=== PATIENT | male | born 1950 | race Caucasian/White ===

== ENCOUNTER 2016-06-17 22:27 | Inpatient (IN) | payer BC, MEDICAID ==
[~2016-06-17] VITALS: Ht 167.6 cm; Wt 65.9 kg
[2016-06-17] MEDS ORDERED: HEPARIN 1000 UNITS/ML 10 ML INJ IV STA (22:32)
[2016-06-17] MEDS ORDERED: ASPIRIN 81 MG TAB PO STA (22:32)
[2016-06-17] MEDS ORDERED: HEPARIN 25000 UNITS/250 ML 250 ML IV STA (22:32)
[2016-06-17 23:05] LABS: BASOPHIL # 0.1 10^3/ul (0.0-0.1); BASOPHILS % 0.6 % (0.0-2.0); EOSINOPHILS % 0.2 % (0.0-7.0); HEMATOCRIT 37.5 % (42.0-52.0); HEMOGLOBIN 12.3 g/dl (14.0-18.0); MEAN CORPUSCULAR HEMOGLOBIN 26.3 pg (29.0-33.0); MEAN CORPUSCULAR HGB CONC 32.7 g/dl (32.0-37.0); MEAN CORPUSCULAR VOLUME 80.3 fl (82.0-101.0); MEAN PLATELET VOLUME 7.6 fl (7.4-10.4); MONOCYTE # 0.7 10^3/ul (0.3-0.9); MONOCYTES % 7.4 % (0.0-11.0); NEUTROPHIL # 7.6 10^3/ul (1.6-7.5); NEUTROPHILS % 80.8 % (39.0-77.0); PLATELET COUNT 353 10^3/UL (140-440); RED BLOOD COUNT 4.66 10^6/ul (4.70-6.10); RED CELL DISTRIBUTION WIDTH 17.1 % (11.5-14.5); UNCORRECTED WBC 9.4 10^3/ul (4.8-10.8); WHITE BLOOD COUNT 9.4 10^3/ul (4.8-10.8)
--- NOTE | 2016-06-17 23:05 | RADRPT ---
PROCEDURE: XR Chest. CLINICAL INDICATION: Chest pain. TECHNIQUE: Single frontal view of the chest was obtained COMPARISON: None FINDINGS: Cardiomegaly. Lungs otherwise substantially clear. Likely degree of central lobular emphysema. There is no pleural effusion or pneumothorax. IMPRESSION: Cardiomegaly, and otherwise no evident acute cardiopulmonary disease. RPTAT: [facility]U Physician David Date Time Electronically viewed and signed by Don Nelson Physician on 06/17/2016 23:05 RS/
[2016-06-17 23:06] LABS: CONDITION 1; LH ANALYZER COMMENTS 1
[2016-06-17 23:10] LABS: INR 1.31; PROTIME 16.4 Sec (12.2-14.2); PT RATIO 1.3
[2016-06-17 23:20] LABS: POTASSIUM 3.8 mmol/L (3.5-5.1)
[2016-06-17 23:22] LABS: CREATININE 1.39 mg/dl (0.61-1.24)
[2016-06-17 23:23] LABS: CALCIUM 8.3 mg/dl (8.4-10.2)
[2016-06-17 23:38] LABS: TROPONIN-I 5.18 ng/ml (0.00-0.12)
[2016-06-18] VITALS (47 sets, daily range): BP systolic 87–156; BP diastolic 48–108; PULSE 70–106; RESP 13–28; TEMP 98; Ht 167.6 cm; Wt 65.9 kg
--- NOTE | 2016-06-18 00:29 | ERA ---
ER Documentation Chief Complaint Date/Time DATE: 06/18/16 TIME: 00:23 Chief Complaint transferred from 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 Patient has a left bundle-branch block with a troponin of 6.9. He did not have any chest pain. He states that he was eating dinner approximate hour before presentation in the hospital when he said he was unable to eat any more and vomited. He did not have any significant abdominal pain is not have abdominal pain or chest pain now. It is unknown if he had a left bundle branch block in the past. Currently states that he feels a little bit shaky but otherwise is asymptomatic. ROS All systems reviewed and are negative except as per history of present illness. Allergies Allergies: Coded Allergies: No Known Drug Allergies (Verified Allergy, Unknown, 06/17/16) PMhx/Soc Medical and Surgical Hx: pt denies Medical Hx, pt denies Surgical Hx Hx Alcohol Use: No Hx Substance Use: No Hx Tobacco Use: No Smoking Status: Never smoker Physical Exam Vitals Vital Signs Date Time Temp Pulse Resp B/P Pulse Ox O2 Delivery O2 Flow Rate FiO2 06/17/16 23:53 82 16 116/74 99 Nasal Cannula 2.0 06/17/16 22:40 Nasal Cannula 2 06/17/16 22:40 98.0 102 16 128/80 100 Physical Exam Const: [] No distress Head: Atraumatic Eyes: Normal Conjunctiva ENT: Normal External Ears, Nose and Mouth. Neck: Full range of motion..~ No meningismus. Resp: Clear to auscultation bilaterally Cardio: Regular mild tachycardia, no murmurs Abd: Soft, non tender, non distended. Normal bowel sounds Skin: No petechiae or rashes Back: No midline or flank tenderness Ext: No cyanosis, or edema Neur: Awake and alert and oriented 3, no focal deficits Psych: Normal Mood and Affect Result Diagram: 06/17/16224406/17/162244 Results 24 hrs Laboratory Tests Test 06/17/16 22:45 Activated Partial Thromboplast Time 31.0Sec Anion Gap 18 Basophils # 0.110^3/ul Basophils % 0.6% Blood Morphology Comment Blood Urea Nitrogen 21mg/dl Calcium Level 8.3mg/dl Carbon Dioxide Level 22mmol/L Chloride Level 106mmol/L Creatinine 1.39mg/dl Eosinophils # 0.010^3/ul Eosinophils % 0.2% Glucose Level 159mg/dl Hematocrit 37.5% Hemoglobin 12.3g/dl INR International Normalized Ratio 1.31 Lymphocytes # 1.010^3/ul Lymphocytes % 11.0% Mean Corpuscular Hemoglobin 26.3pg Mean Corpuscular Hemoglobin Concent 32.7g/dl Mean Corpuscular Volume 80.3fl Mean Platelet Volume 7.6fl Monocytes # 0.710^3/ul Monocytes % 7.4% Neutrophils # 7.610^3/ul Neutrophils % 80.8% Nucleated Red Blood Cells # 0.010^3/ul Nucleated Red Blood Cells % 0.0/100WBC Platelet Count 29448^3/UL Potassium Level 3.8mmol/L Prothrombin Time 16.4Sec Prothrombin Time Ratio 1.3 Red Blood Count 4.6610^6/ul Red Cell Distribution Width 17.1% Sodium Level 142mmol/L Troponin I 5.180ng/ml White Blood Count 9.410^3/ul Current Medications Medications (Trade) Dose Ordered Sig/Bonita Route PRN Reason Start Time Stop Time Status Last Admin Dose Admin Aspirin (Aspirin) 162 mg ONCE STAT PO 06/17/16 22:32 06/17/16 22:37 DC 06/17/16 23:00 Heparin Sodium (Porcine) 4000 unit 4,000 unit ONCE STAT IV 06/17/16 22:32 06/17/16 22:37 DC 06/17/16 23:06 Heparin Sodium (Porcine) (Heparin 02156 Units/250 ml) 250 ml @ 0 mls/hr ONCE STAT IV 06/17/16 22:32 06/17/16 22:37 DC 06/17/16 23:21 Ondansetron HCl (Zofran Inj) 4 mg ER BRIDGE PRN IV NAUSEA AND/OR VOMITING 06/18/16 00:30 06/19/16 00:29 Acetaminophen (Tylenol Tab) 650 mg ER BRIDGE PRN PO MILD PAIN/FEVER 06/18/16 00:30 06/19/16 00:29 Procedures/MDM Acute myocardial infarction 66-year-old male. Spoke with sole leveler, Faviola, so that a left bundle does not constitute a STEMI and she worked the patient up further other than activate the Fur Floor Worker. Patient's troponin was 5.1 here which is decreased from prior. EKG still showing left bundle branch block. Patient remained asymptomatic in the emergency room and had no return of nausea. He had no chest pain. Tender mainly given by 160 pill grams of aspirin because per senior courtroom clerk report it only received a total of 162, 81 [facility] and 81 in the ambulance. I started a heparin bolus of 4000 units as well as a heparin drip. Patient need to be admitted to telemetry for cardiology evaluation of his troponins trended. He will go for further testing echocardiogram etc. Spoke with Dr. Poole will be admitting. EKG interpretation: Sinus tachycardia rate of 104, Left bundle-branch block, normal axis court monitor interpretation: Initial sinus tachycardia followed by normal sinus rhythm with no other arrhythmias Chest x-ray interpretation: No acute process, cardiomegaly, no infiltrate, no pulmonary edema, no bony abnormalities Departure Diagnosis: Primary Impression: Non-STEMI (non-ST elevated myocardial infarction) Additional Impressions: Bundle branch block, left Vomiting Renal insufficiency Condition: Serious IRIS LOYA DO Jun 18, 2016 00:29
[2016-06-18] MEDS ORDERED: ONDANSETRON 4 MG INJ IV PRN ×3 (00:30→11:30)
[2016-06-18] MEDS ORDERED: ACETAMINOPHEN 325 MG TAB PO PRN ×3 (00:30→11:30)
[2016-06-18 06:16] LABS: INR 1.23; PROTIME 15.6 Sec (12.2-14.2); PT RATIO 1.2
[2016-06-18 06:17] LABS: PARTIAL THROMBOPLASTIN TIME 41.1 Sec (25.0-35.0)
[2016-06-18 06:24] LABS: CK-MB 2.17 ng/ml (0.0-2.4); TROPONIN-I 3.85 ng/ml (0.00-0.12)
[2016-06-18] MEDS ORDERED: HEPARIN 25000 UNITS/D5W 250 ML IV SCH (06:30)
[2016-06-18] MEDS ORDERED: HEPARIN 1000 UNITS/ML 10 ML INJ IV PRN ×2 (06:30→08:00)
[2016-06-18] MEDS ORDERED: HYDROCODONE/APAP (5/325) TAB PO PRN (08:00)
[2016-06-18] MEDS ORDERED: NACL 0.9% 3 ML SYG IV SCH (08:00)
[2016-06-18] MEDS ORDERED: 1/2 NS + KCL 20 MEQ 1,000 ML IV SCH (08:00)
[2016-06-18] MEDS ORDERED: HEPARIN 25000 UNITS/250 ML 250 ML IV SCH (08:00)
[2016-06-18] MEDS ORDERED: DOCUSATE SODIUM 100 MG CAP PO PRN (08:00)
[2016-06-18] MEDS ORDERED: NITROGLYCERIN (SL) 0.4 MG TAB SL PRN (08:00)
[2016-06-18] MEDS ORDERED: ZOLPIDEM 5 MG TAB PO PRN (08:00)
[2016-06-18] MEDS ORDERED: morphine 2 MG INJ IV PRN ×2 (08:00→11:30)
[2016-06-18] MEDS ORDERED: ATEN-51 PO (08:16)
--- NOTE | 2016-06-18 08:38 | HP ---
DATE OF ADMISSION: 06/17/2016 TIME: 7 a.m. CHIEF COMPLAINT: Nausea, vomiting. HISTORY OF PRESENT ILLNESS: The patient is a 66-year-old male with a history of hypertension and it looks like rheumatoid arthritis. The patient presents with nausea, vomiting after having some soup yesterday. The patient was initially at an outside hospital. He did have a left bundle branch blo ck and the troponins were elevated. There is question of whether a code STEMI should be called. I had spoken to interventionalist ornamental bronze worker, Dr. Salmeron. He did not feel that it warranted a code STEM I. The patient's troponins were noted to be elevated in the ED. The patient had no chest pain curr ently or even prior, no shortness of breath. Vitals have been stable. The patient at this time den ies any nausea, vomiting. He denies any cardiac history. PAST MEDICAL HISTORY: Hypertension and rheumatoid arthritis. PAST SURGICAL HISTORY: Denies. HOME MEDICATIONS: Unknown at this time. The patient takes blood pressure medications and medicines for his arthritis. ALLERGIES: NO KNOWN DRUG ALLERGIES. FAMILY HISTORY: Denies any cardiac history. SOCIAL HISTORY: Denies any alcohol, tobacco, or drug abuse. REVIEW OF SYSTEMS: A 12-point review of systems negative except that listed in the HPI. PHYSICAL EXAMINATION: VITAL SIGNS: Temperature is 98.0, pulse 80, respiratory rate 17, BP is 121/85, saturation 100% on 2 L. GENERAL: No acute distress, alert and oriented. HEENT: Normocephalic, atraumatic. LUNGS: Clear to auscultation. CARDIOVASCULAR: Regular rate and rhythm. ABDOMEN: Nondistended, nontender, soft. EXTREMITIES: No clubbing, cyanosis, or edema. LABORATORIES: White count 7.4, hemoglobin is 12.3, platelets are 353. Chemistry within normal limi ts except for BUN of 21, creatinine 1.39. Troponin is 5.180 and 3.850. INR is 1.23. DIAGNOSTICS: Chest x-ray shows cardiomegaly, otherwise no acute disease. EKG shows sinus tachycard ia, left bundle branch block, normal axis, no signs of ischemia. ASSESSMENT AND PLAN: 1. Pjd-UM-ymedrvelw myocardial infarction. The patient is not felt to require emergent catheteriza tion per interventionalist ornamental bronze worker, Dr. Salmeron. The patient has no chest pain. Vitals are stable. No shortness of breath. Troponins are trending down. We will continue heparin drip. Will get a cardiology consultation. We will get a 2-D echo. Will also give nitroglycerin and morphine p.r.n. for any chest pain, but once again, the patient is not having any pain at this time. Etiology may h ave been secondary to severe nausea, vomiting, but it is not clear at this time. 2. Intractable nausea and vomiting. This has since resolved. He states that this occurred after h aving some soup yesterday, but once again, this is resolved. 3. Normocytic anemia. This is mild. We will check an iron panel. 4. Acute versus chronic kidney disease. The patient's baseline renal function is unknown, will con radio equipment repairer a nephrology consultation. 5. History of arthritis, likely rheumatoid, pain control. The patient should be advised to see a r heumatologist as an outpatient to initiate biologics. 6. Prophylaxis. The patient will benefit from a heparin drip. Dictated By: BEATRIZ KESSLER MD BS/NTS Conf#: [id number] DID#: [id number]
--- NOTE | 2016-06-18 09:03 | CONS ---
Date/Time of Note Date/Time of Note DATE: 06/18/16 TIME: 08:56 Assessment/Plan Assessment/Plan Chief Complaint/Hosp Course NSTEMI: Unclear when and what the symptoms were as the pt only had nausea/ vomiting and no typical symptoms. EKG shows LBBB but unclear what his baseline EKG is. The EKG does however also show inferior ST depressions and mild RONALDO I and aVL. He remains completely asymptomatic. The troponins have gone from 7-->5- ->4. Unknown EF JENINFER vs CKD: Cr 1.3 HTN RA -though unclear circumstances, the patient had an NSTEMI and needs coronary evaluation -ASA given, on heparin drip -will arrange for cath this am or early afternoon depending on pathology laboratory technologist availability Problems: Consultation Date/Type/Reason Admit Date/Time Jun 18, 2016 at 08:52 Date of Consultation: Jun 18, 2016 Type of Consultation: Cardiology Reason for Consultation NSTEMI Referring Provider: BEATRIZ KESSLER of Present Illness 66 yo M with a h/o HTN and RA who presented to [facility] with N/V and was sent to [facility] for possible STEMI due to LBBB. The patient was thought not to be having a STEMI due to lack of symptoms and was treated as an NSTEMI. Currently the pt is admitted to [facility]. He notes that he is comfortable and denies any chest pain, SOB or of ever having any. He just notes that he suddenly had nausea and vomited so he came in for evaluation. No prior NM, no tobacco use. He does not have bleeding issues and is agreeable to cath. per HPI Social History Smoking Status: Never smoker Exam/Review of Systems Vital Signs Vitals Vital Signs Date Time Temp Pulse Resp B/P Pulse Ox O2 Delivery O2 Flow Rate FiO2 06/18/16 07:17 80 17 121/85 100 Nasal Cannula 2.0 06/18/16 04:45 98.0 Exam Constitutional: alert, oriented Psych: no complaints Head: atraumatic, normocephalic Neck: No jvd Respiratory: clear to auscultation, No crackles/rales Cardiovascular: regular rate and rhythm, systolic murmur (2/6), No edema Gastrointestinal: non-tender, soft Musculoskeletal: joint tenderness Extremities: normal pulses Neurological: nl mental status, nl speech Results Result Diagram: 06/17/16224406/17/162244 Results 24 hrs Laboratory Tests Test 06/17/16 22:45 06/18/16 05:15 Activated Partial Thromboplast Time 31.0 41.1 H Anion Gap 18 H Basophils # 0.1 Basophils % 0.6 Blood Morphology Comment Blood Urea Nitrogen 21 H Calcium Level 8.3 L Carbon Dioxide Level 22 Chloride Level 106 Creatinine 1.39 H Eosinophils # 0.0 Eosinophils % 0.2 Glucose Level 159 Hematocrit 37.5 L Hemoglobin 12.3 L INR International Normalized Ratio 1.31 1.23 Lymphocytes # 1.0 Lymphocytes % 11.0 L Mean Corpuscular Hemoglobin 26.3 L Mean Corpuscular Hemoglobin Concent 32.7 Mean Corpuscular Volume 80.3 L Mean Platelet Volume 7.6 Monocytes # 0.7 Monocytes % 7.4 Neutrophils # 7.6 H Neutrophils % 80.8 H Nucleated Red Blood Cells # 0.0 Nucleated Red Blood Cells % 0.0 Platelet Count 353 Potassium Level 3.8 Prothrombin Time 16.4 H 15.6 H Prothrombin Time Ratio 1.3 1.2 Red Blood Count 4.66 L Red Cell Distribution Width 17.1 H Sodium Level 142 Troponin I 5.180 *H 3.850 *H White Blood Count 9.4 Creatine Kinase 98 Creatine Kinase Index 2.2 Creatinine Kinase MB (Mass) 2.17 Medications Medications Current Medications Heparin Sodium (Porcine) (Heparin 09177 Units/250 ml) 250 ml @ 8 mls/hr Q24H IV Last administered on 06/18/16 06:53; Admin Dose 11 MLS/HR; Start 06/18/16 at 06 :30 Heparin Sodium (Porcine) (Heparin (1000 Units/ml)) 4,000 unit PRN PRN IV PENDING LAB VALUE Last administered on 06/18/16 07:00; Admin Dose 4,000 UNIT; Start 06/18/16 at 06:30 Ondansetron HCl (Zofran Inj) 4 mg Q6H PRN IV NAUSEA AND/OR VOMITING; Start 06/18 at 08:00; Status UNV Acetaminophen (Tylenol Tab) 650 mg Q6H PRN PO PAIN LEVEL 1-3 OR FEVER; Start at 08:00; Status UNV Acetaminophen/ Hydrocodone Bitart ([place] (5/325)) 1 tab Q6H PRN PO MODERATE PAIN LEVEL 4-6; Start 06/18/16 at 08:00; Status UNV Morphine Sulfate (morphine) 2 mg Q4H PRN IV SEVERE PAIN LEVEL 7-10; Start at 08:00; Status UNV Docusate Sodium (Colace) 100 mg Q12H PRN PO CONSTIPATION; Start 06/18/16 at 08: 00; Status UNV Zolpidem Tartrate 5 mg 5 mg QHS PRN PO SLEEP; Start 06/18/16 at 08:00; Status UNV Potassium Chloride/Sodium Chloride (06/14 NS + KCl 20 Meq) 1,000 ml @ 100 mls/hr Q10H IV ; Start 06/18/16 at 08:00; Status UNV Nitroglycerin (Nitroglycerin (Sl Tab) 0.4 Mg) 1 tab Q5M PRN SL CHEST PAIN; Start 06/18/16 at 08:00; Status UNV Atorvastatin Calcium (Lipitor) 40 mg HS PO ; Start 06/18/16 at 21:00; Status UNV XIMENA NAJERA Jun 18, 2016 09:03
[2016-06-18] MEDS ORDERED: MIDAZOLAM 1 MG/ML 2 ML INJ ONE (09:45)
[2016-06-18] MEDS ORDERED: FENTAnyl 50 MCG/ML VIAL ONE (09:45)
[2016-06-18] MEDS ORDERED: IODIXANOL LOCM 100 ML BTL ONE (09:45)
[2016-06-18] MEDS ORDERED: LIDOCAINE 1% (MDV) 20 ML INJ ONE (09:45)
[2016-06-18] MEDS ORDERED: VERAPAMIL 5 MG INJ ONE (09:46)
[2016-06-18] MEDS ORDERED: HEPARIN 1000 UNITS/ML 10 ML INJ ONE (09:46)
[2016-06-18] MEDS ORDERED: NITROGLYCERIN (IC) 100 MCG/ML INJ ONE (09:46)
[2016-06-18] MEDS ORDERED: ASPIRIN 325 MG TAB ONE (10:36)
[2016-06-18] MEDS ORDERED: CLOPIDOGREL 300 MG TAB ONE (10:36)
--- NOTE | 2016-06-18 11:34 | OPR ---
Date/Time of Note Date/Time of Note DATE: 06/18/16 TIME: 11:21 Operative Report Free Text/Dictation Procedure Date:06/18/2016 Procedures Performed: 1)Selective left and right coronary angiography. 2)Direct stenting of the proximal Ramus with a Promus 2.75 x 12 stent. Pre-operative Diagnosis:NSTEMI Post-operative Diagnosis:NSTEMI Indications: 66 yo M who presented with nausea/vomiting but was found to have an NSTEMI with trop 7 and downtrending. Description of Procedure: After informed consent, the patient was brought to the cardiac catheterization lab. The procedure site was prepped and draped in usual manner. The patient was premedicated with versed 2 mg and fentanyl 50 mcg. 2 mL lidocaine was injected into the right wrist. Next using the posterior wall approach, the 6 brazilian sheath was inserted into the right radial artery. Next using the JL3.5 and JR4, selective angiography of the left and right coronary arteries were obtained. The decision was made to proceed with PCI of the Ramus as this was a very large vessel and was likely the culprit. There was also a diagonal that at first glance may have been occluded but on other views was likely just at a bend and there was no contrast staining or collaterals to suggest this was a true occlusion. A JL 3 guide was advanced and engaged into the left coronary artery. After appropriate anticoagulation and antiplatelets were given, the BMW angioplasty wire was advanced past the lesion. Subsequently, the Promus 2.75 x 12 stent was advanced to the lesion and deployed at 11 linn. Next the stent was post dilated with the 2.75 X 8 noncompliant balloon times 2 at a maximum of 12 linn. Final angiography revealed DELIA 3 flow, no edge dissection, and appropriate stent expansion. Next all equipment was removed and hemostasis was achieved by TR band. Findings: Anatomy/Hemodynamics: Left main: normal LAD:mid-distal 40% Diagonal: luminal irregularities Ramus: proximal 70-80%, large vessel Circumflex:ostial 30-40%, 20-30% plaquing throughout Obtuse marginal: normal. Distal OMs are small and have 40-50% disease RCA:20-30% plaquing PDA:normal PLV:normal LV angiography: LV-Ao no gradient LVEDP:4 Contrast used:60 Medications used: Versed 2 mg Fentanyl 50 mcg Radial cocktail: heparin 2500, NTG 200, verapamil 2.5 Heparin: additional 2000 units pre PCI plavix 600mg ASA given in ED Equipment used: 6 brazilian JL 3.0 guide BMW angioplasty wire Promus 2.75 x 12 drug eluting stent 2.75 x 8 noncompliant balloon Assessment: NSTEMI s/p PCI of Ramus HTN Plan: -ICU observation -ASA 81mg -plavix 75mg daily -metoprolol 25mg BID -lipitor 80mg -check echo XIMENA NAJERA Jun 18, 2016 11:34
--- NOTE | 2016-06-18 12:07 | RADRPT ---
Echocardiogram Report Patient Name: PATRICIA SHEEHAN Gender: Male Date: 1950 Study Date: 18-Jun-2016 Orthophotography Technician: Eufemia Solorzano RDCS Location: [facility] Ref. Physician: BEATRIZ KESSLER Quality: Good Procedures: Transthoracic echocardiogram with complete 2D, M-Mode, and doppler examination. Indications: NSTEMI. 2D/M Mode Doppler Measurement Value Normal Ranges Measurement Value Normal Ranges LVIDd 2D 6.2 3.5 - 5.6 cm AV Peak Deo 1.2 m/sec LVIDs 2D 5.0 2.1 - 4.1 cm AV Peak PG 5.7 mmHg LVPWd 2D 1.0 0.6 - 1.1 cm LVOT Peak Deo 0.9 m/sec IVSd 2D 0.9 0.6 - 1.1 cm LVOT Peak PG 3.1 mmHg AoR Diam 2D 2.9 2.0 - 3.7 cm MV E Peak Deo 0.7 m/sec EDV 2D 196.1 cm3 MV A Peak Deo 0.9 m/sec ESV 2D 123.8 cm3 MV E/A 0.8 LA Dimen 2D 3.6 2.3 - 4.0 cm MV Decel Time 98 msec MV Decel [place] 7 MV E/A 0.8 Findings Left Ventricle: Normal left ventricular wall thickness. Mild enlargement of left ventricle cavity. Severe global left ventricular systolic dysfunction. Ejection fraction is visually estimated at 2025 %. Tissue Doppler/Mitral Doppler indices are consistent with impaired relaxation (Stage I diastolic dysfunction). There is global hypokinesis involving all segments of the left ventricle. Resting Segmental Wall Motion Analysis: Severe hypokinesis/akinesis globally except for the basal inferolateral and anterolateral hoffman. Right Ventricle: Normal right ventricular size. Normal right ventricular systolic function. Left Atrium: There is mild enlargement of left atrium. Right Atrium: The right atrium is normal in size. Mitral Valve: Mitral valve leaflets appear mildly thickened. Mild mitral annular calcification. Mild to moderate mitral valve regurgitation. Aortic Valve: No significant aortic stenosis or insufficiency. Aortic cusps appear mildly calcified. Tricuspid Valve: Normal appearance of the tricuspid valve. Unable to obtain RVSP due to minimal presence of tricuspid regurgitation. Pulmonic Valve: Normal pulmonic valve appearance. There is trace pulmonic regurgitation. Pericardium: Normal pericardium with no significant pericardial effusion. Aorta: Normal aortic root. IVC: Normal size and normal respiratory collapse consistent with normal right atrial pressure. Conclusions 1.Normal left ventricular wall thickness. Mild enlargement of left ventricle cavity. Severe global left ventricular systolic dysfunction. Ejection fraction is visually estimated at 20-25 %. Tissue Doppler/Mitral Doppler indices are consistent with impaired relaxation (Stage I diastolic dysfunction). Severe hypokinesis/akinesis globally except for the basal inferolateral and anterolateral hoffman. 2.Mild to moderate mitral valve regurgitation. 3.Unable to obtain RVSP due to minimal presence of tricuspid regurgitation. RA pressure is 3 mmHg. Electronically Signed By: Luciano Love 18-Jun-2016 12:06:30 -0800 Patient Name: PATRICIA SHEEHAN Study Date: 18-Jun-[id number]
[2016-06-18] MEDS: SOD CHLORIDE 0.9% 1,000 ML IV SCH ×2 (13:18→13:53)
[2016-06-18 15:13] LABS: CK-MB 1.98 ng/ml (0.0-2.4); TROPONIN-I 4.05 ng/ml (0.00-0.12)
--- NOTE | 2016-06-18 16:56 | PN ---
Date/Time of Note Date/Time of Note DATE: 06/18/16 TIME: 16:52 Assessment/Plan VTE Prophylaxis VTE Prophylaxis Intervention: SCD's Lines/Catheters IV Catheter Type (from [facility]): Peripheral IV Assessment/Plan Chief Complaint/Hosp Course Assessment and plan 1. Non-ST elevated myocardial infarction. Patient seen by toolroom keeper. He is status post PCI. Patient did have stent of proximal ramus with Promus 2.75 x 12 stent. Continue on antiplatelet therapy. Continue on statin medication. Continue ICU monitoring 2. Reported intractable nausea and vomiting. Resolved at present. We'll provide with antiemetics as needed 3. Normocytic anemia. Stable at present. Follow up on iron panel 4. Acute on likely chronic kidney disease. On enteric creatinine BUN. We'll get roll up machine operator pending clinical course 5. History of arthritis. Continue with analgesics as needed Disposition and plan: Continue icing monitoring. Optimize on cardiovascular medications. Discharge him medically stable and cleared by consultants Discussed plan of care with Dr. Jaeger Problems: Subjective 24 Hr Interval Summary Free Text/Dictation Seen in ICU. Denies any chest pain or shortness of breath its time. Appears comfortable Exam/Review of Systems Vital Signs Vitals Vital Signs Date Time Temp Pulse Resp B/P Pulse Ox O2 Delivery O2 Flow Rate FiO2 06/18/16 16:00 97.4 81 19 118/73 99 Room Air 06/18/16 07:17 2.0 Exam General: No acute signs or symptoms of distress Eyes: pupils equal round, Anicteric sclera Neck: Supple nontender, no JVD Cardiac: S1, S2 auscultated, regular rhythm and rate Pulmonary: No coarse rhonchi or breathing auscultated GI: Abdomen soft nontender nondistended, bowel sounds active Extremities: No edema bilateral lower extremities Skin: Clean dry and intact Neurologic: Alert to person place and time and situation Results Result Diagram: 06/17/16224406/17/162244 Results 24 hrs Laboratory Tests Test 06/17/16 22:45 06/18/16 05:15 06/18/16 14:20 Activated Partial Thromboplast Time 31.0 41.1 H Anion Gap 18 H Basophils # 0.1 Basophils % 0.6 Blood Morphology Comment Blood Urea Nitrogen 21 H Calcium Level 8.3 L Carbon Dioxide Level 22 Chloride Level 106 Creatinine 1.39 H Eosinophils # 0.0 Eosinophils % 0.2 Glucose Level 159 Hematocrit 37.5 L Hemoglobin 12.3 L INR International Normalized Ratio 1.31 1.23 Lymphocytes # 1.0 Lymphocytes % 11.0 L Mean Corpuscular Hemoglobin 26.3 L Mean Corpuscular Hemoglobin Concent 32.7 Mean Corpuscular Volume 80.3 L Mean Platelet Volume 7.6 Monocytes # 0.7 Monocytes % 7.4 Neutrophils # 7.6 H Neutrophils % 80.8 H Nucleated Red Blood Cells # 0.0 Nucleated Red Blood Cells % 0.0 Platelet Count 353 Potassium Level 3.8 Prothrombin Time 16.4 H 15.6 H Prothrombin Time Ratio 1.3 1.2 Red Blood Count 4.66 L Red Cell Distribution Width 17.1 H Sodium Level 142 Troponin I 5.180 *H 3.850 *H 4.050 *H White Blood Count 9.4 Creatine Kinase 98 78 Creatine Kinase Index 2.2 2.5 Creatinine Kinase MB (Mass) 2.17 1.98 Medications Medications Current Medications Acetaminophen (Tylenol Tab) 650 mg Q6H PRN PO PAIN LEVEL 1-3 OR FEVER; Start at 08:00 Acetaminophen/ Hydrocodone Bitart ([place] (5/325)) 1 tab Q6H PRN PO MODERATE PAIN LEVEL 4-6; Start 06/18/16 at 08:00 Docusate Sodium (Colace) 100 mg Q12H PRN PO CONSTIPATION; Start 06/18/16 at 08: 00 Zolpidem Tartrate (Ambien) 5 mg QHS PRN PO SLEEP; Start 06/18/16 at 08:00 Nitroglycerin (Nitroglycerin (Sl Tab) 0.4 Mg) 1 tab Q5M PRN SL CHEST PAIN; Start 06/18/16 at 08:00 Influenza Virus Vaccine (Fluzone) 0.5 ml ONCE ONCE IM* ; Start 06/21/16 at 09:00 ; Stop 06/21/16 at 09:01 Acetaminophen (Tylenol Tab) 650 mg Q4H PRN PO NON-CARDIAC PAIN LEVEL (1-3); Start 06/18/16 at 11:30 Morphine Sulfate (morphine) 2 mg Q2H PRN IV FOR NON CARDIAC PAIN (4-10); Start 06/18/16 at 11:30 Ondansetron HCl (Zofran Inj) 4 mg Q4H PRN IV NAUSEA AND/OR VOMITING; Start 06/18 at 11:30 Atorvastatin Calcium (Lipitor) 80 mg DAILY@21 PO ; Start 06/18/16 at 21:00 Aspirin (Aspirin) 81 mg DAILY NGT ; Start 06/19/16 at 09:00 Clopidogrel Bisulfate (plaVIX) 75 mg DAILY PO ; Start 06/19/16 at 09:00 Metoprolol Tartrate (Lopressor) 25 mg BID PO ; Start 06/18/16 at 21:00 ANAID RAMOS Jun 18, 2016 16:56
[2016-06-18] MEDS ORDERED: ATORVASTATIN 80 MG TAB PO SCH (21:00)
[2016-06-18] MEDS ORDERED: ATORVASTATIN 40 MG TAB PO SCH (21:00)
[2016-06-18] MEDS: METOPROLOL 25 MG TAB PO SCH (21:03)
[2016-06-19] VITALS (14 sets, daily range): BP systolic 85–146; BP diastolic 50–98; PULSE 74–103; RESP 11–28
[2016-06-19 06:02] LABS: POTASSIUM 4.2 mmol/L (3.5-5.1)
[2016-06-19 06:03] LABS: BASOPHILS % 0.3 % (0.0-2.0); EOSINOPHILS # 0.1 10^3/ul (0.0-0.5); EOSINOPHILS % 1.7 % (0.0-7.0); HEMATOCRIT 34.9 % (42.0-52.0); HEMOGLOBIN 11.7 g/dl (14.0-18.0); LYMPHOCYTES # 1.9 10^3/ul (0.8-2.9); LYMPHOCYTES % 26.2 % (15.0-51.0); MEAN CORPUSCULAR HEMOGLOBIN 26.7 pg (29.0-33.0); MEAN CORPUSCULAR HGB CONC 33.4 g/dl (32.0-37.0); MEAN CORPUSCULAR VOLUME 79.9 fl (82.0-101.0); MEAN PLATELET VOLUME 7.9 fl (7.4-10.4); MONOCYTE # 0.7 10^3/ul (0.3-0.9); MONOCYTES % 8.8 % (0.0-11.0); NEUTROPHIL # 4.7 10^3/ul (1.6-7.5); PLATELET COUNT 338 10^3/UL (140-440); RED BLOOD COUNT 4.37 10^6/ul (4.70-6.10); RED CELL DISTRIBUTION WIDTH 16.5 % (11.5-14.5); UNCORRECTED WBC 7.4 10^3/ul (4.8-10.8); WHITE BLOOD COUNT 7.4 10^3/ul (4.8-10.8)
[2016-06-19 06:05] LABS: CREATININE 1.19 mg/dl (0.61-1.24)
[2016-06-19 06:06] LABS: CALCIUM 8.3 mg/dl (8.4-10.2); MAGNESIUM 2.1 mg/dl (1.7-2.5); PHOSPHORUS 3.1 mg/dl (2.5-4.9)
[2016-06-19 06:22] LABS: CONDITION 1; LH ANALYZER COMMENTS 1
[2016-06-19] MEDS: METOPROLOL 25 MG TAB PO SCH (09:00)
[2016-06-19] MEDS ORDERED: CLOPIDOGREL 75 MG TAB PO SCH (09:00)
[2016-06-19] MEDS ORDERED: ASPIRIN 81 MG TAB NGT SCH (09:00)
--- NOTE | 2016-06-19 11:01 | CONS ---
Date/Time of Note Date/Time of Note DATE: 06/19/16 TIME: 10:57 Assessment/Plan Assessment/Plan Chief Complaint/Hosp Course NSTEMI: s/p PCI of large Ramus. Doing well. Cardiomyopathy: EF is 20-25%. I do not think the ramus lesion and the NSTEMI explain the degree of cardiomyopathy. It is very possible that he has a nonischemic cardiomyopathy underlying. Will need to follow up as outpt with medical therapy to see if it will improve and if he needs an ICD eventually. He is currently well compensated and does not need lasix. JENNIFER vs CKD: Cr 1.3 on admission, now better HTN RA -if ambulates without issues, can be discharged with outpt follow-up. -discharge with ASA, plavix, liptor -switch metoprolol to coreg -low dose lisinopril if BP tolerates. -f/u 1-2 weeks Problems: Consultation Date/Type/Reason Admit Date/Time Jun 18, 2016 at 08:52 Initial Consult Date 06/18/16 Type of Consultation: Cardiology Referring Provider: BEATRIZ KESSLER 24 HR Interval Summary Free Text/Dictation No o/n events. No chest pain or SOB. Would like to go home. Exam/Review of Systems Vital Signs Vitals Vital Signs Date Time Temp Pulse Resp B/P Pulse Ox O2 Delivery O2 Flow Rate FiO2 06/19/16 08:00 84 06/19/16 07:00 22 97/61 96 Room Air 06/19/16 04:00 98.1 06/18/16 07:17 2.0 Intake and Output 06/18/16 06/18/16 06/19/16 15:00 23:00 07:00 Intake Total 300 ml 515 ml 150 ml Output Total 260 ml 570 ml 825 ml Balance 40 ml -55 ml -675 ml Exam Constitutional: alert, oriented Psych: no complaints Head: normocephalic Neck: No jvd Respiratory: clear to auscultation Cardiovascular: nl pulses, regular rate and rhythm, No edema, No systolic murmur Gastrointestinal: soft, No non-tender Neurological: nl mental status, nl speech Results Result Diagram: 06/19/16 0500 06/19/16 0500 Results 24 hrs Laboratory Tests Test 06/18/16 14:20 06/19/16 05:00 Creatine Kinase 78 Creatine Kinase Index 2.5 Creatinine Kinase MB (Mass) 1.98 Troponin I 4.050 *H Anion Gap 15 Basophils # 0.0 Basophils % 0.3 Blood Morphology Comment Blood Urea Nitrogen 18 Calcium Level 8.3 L Carbon Dioxide Level 23 Chloride Level 108 Cholesterol Level 128 Cholesterol/HDL Ratio 8.0 Creatinine 1.19 Eosinophils # 0.1 Eosinophils % 1.7 Glucose Level 84 # HDL Cholesterol 16 L Hematocrit 34.9 L Hemoglobin 11.7 L Hemoglobin A1c 5.5 LDL Cholesterol, Calculated 91 Lymphocytes # 1.9 Lymphocytes % 26.2 Magnesium Level 2.1 Mean Corpuscular Hemoglobin 26.7 L Mean Corpuscular Hemoglobin Concent 33.4 Mean Corpuscular Volume 79.9 L Mean Platelet Volume 7.9 Monocytes # 0.7 Monocytes % 8.8 Neutrophils # 4.7 Neutrophils % 63.0 Nucleated Red Blood Cells # 0.0 Nucleated Red Blood Cells % 0.0 Phosphorus Level 3.1 Platelet Count 338 Potassium Level 4.2 Red Blood Count 4.37 L Red Cell Distribution Width 16.5 H Sodium Level 142 Triglycerides Level 107 White Blood Count 7.4 # Medications Medications Current Medications Acetaminophen (Tylenol Tab) 650 mg Q6H PRN PO PAIN LEVEL 1-3 OR FEVER; Start at 08:00 Acetaminophen/ Hydrocodone Bitart ([place] (5/325)) 1 tab Q6H PRN PO MODERATE PAIN LEVEL 4-6; Start 06/18/16 at 08:00 Docusate Sodium (Colace) 100 mg Q12H PRN PO CONSTIPATION; Start 06/18/16 at 08: 00 Zolpidem Tartrate (Ambien) 5 mg QHS PRN PO SLEEP Last administered on 06/18/16t 21:03; Admin Dose 5 MG; Start 06/18/16 at 08:00 Nitroglycerin (Nitroglycerin (Sl Tab) 0.4 Mg) 1 tab Q5M PRN SL CHEST PAIN; Start 06/18/16 at 08:00 Influenza Virus Vaccine (Fluzone) 0.5 ml ONCE ONCE IM* ; Start 06/21/16 at 09:00 ; Stop 06/21/16 at 09:01 Acetaminophen (Tylenol Tab) 650 mg Q4H PRN PO NON-CARDIAC PAIN LEVEL (1-3); Start 06/18/16 at 11:30 Morphine Sulfate (morphine) 2 mg Q2H PRN IV FOR NON CARDIAC PAIN (4-10); Start 06/18/16 at 11:30 Ondansetron HCl (Zofran Inj) 4 mg Q4H PRN IV NAUSEA AND/OR VOMITING; Start 06/18 at 11:30 Atorvastatin Calcium (Lipitor) 80 mg DAILY@21 PO Last administered on 06/18/16 21:03; Admin Dose 80 MG; Start 06/18/16 at 21:00 Aspirin (Aspirin) 81 mg DAILY NGT Last administered on 06/19/16 08:59; Admin Dose 81 MG; Start 06/19/16 at 09:00 Clopidogrel Bisulfate (plaVIX) 75 mg DAILY PO Last administered on 06/19/16 08: 59; Admin Dose 75 MG; Start 06/19/16 at 09:00 Carvedilol (Coreg) 6.25 mg BID PO ; Start 06/19/16 at 21:00 XIMENA NAJERA Jun 19, 2016 11:01
[2016-06-19] MEDS ORDERED: ASP81 NGT (13:00)
[2016-06-19] MEDS ORDERED: CLOP75TA28 PO (13:00)
[2016-06-19] MEDS ORDERED: ATOR80TA75 PO (13:00)
[2016-06-19] MEDS ORDERED: CARV6.2579 PO (13:00)
[2016-06-19] MEDS ORDERED: LISI2.5T80 PO (13:00)
[2016-06-19] MEDS ORDERED: OMEG-135 PO (13:00)
--- NOTE | 2016-06-19 13:05 | PDOCDIS ---
Discharge Instructions DIAGNOSIS Discharge Diagnosis: 1. Non ST-elevated Myocardial Infarction 2. Dyslipidemia HOME CARE INSTRUCTIONS: Diet Instructions: Low Fat /CholesterolSpecial Diet: Carb count FOLLOW UP/APPOINTMENTS Appointments 1. Follow up with Dr. Luciano Love in 1-2 weeks OTHER ORDERS: Other Orders: 1. Call 911 if you have worsening chest pain ANAID RAMOS Jun 19, 2016 13:05
--- NOTE | 2016-06-19 15:21 | DS ---
Date/Time of Note Date/Time of Note DATE: 06/19/16 TIME: 15:16 Discharge Summary Admission/Discharge Info Admit Date/Time Jun 18, 2016 at 08:52 Discharge Date/Time Jun 19, 2016 at 14:26 Final Diagnosis 1. Non-ST elevated myocardial infarction 2. Acute on chronic kidney injury. 3. History of rheumatoid arthritis 4. History of essential hypertension Patient Condition: Stable Consults 1. Dr. Luciano [facility] Course This is a 66-year-old male with history of hypertension and rheumatoid arthritis who came to [facility] due to reports of nausea and vomiting. He was initially evaluated at an outside hospital where he was found to have left bundle-branch block as well as elevated troponins. He was brought to [facility] due to insurance issue. Patient denied any chest pain. He was noted with elevated troponins again when he was here [facility]. He was seen by tape keller operator. Patient was found to have NSTEMI. Patient did undergo PCI with stent of proximal ramus with Promus 2.75 x 12 stent. Patient did tolerate the procedure well. He was optimized with antiplatelet therapy as well as statin medication. He was also put on NINFA inhibitor as well as beta prasad. Patient was also noted with acute kidney injury but this did resolve once patient was able to take oral hydration. During his course of stay did improve. He denied any chest pain shortness of breath and he did report his nausea and vomiting had fully resolved on the day of his discharge. The plan of care was discussed with the patient and patient did verbalize understanding. On the day of discharge patient was in stable condition Discussed plan of care with Disposition: Home Home Meds Active Scripts [place]-3 Fatty Acids/Fish Oil (Fish Oil 1,000 mg Capsule) 1 Each Capsule, 1 EACH PO DAILY for 30 Days, CAP Prov:ANAID RAMOS 06/19/16 Atorvastatin* (Atorvastatin*) 80 Mg Tablet, 80 MG PO DAILY@21 for 30 Days, TAB Prov:ANAID RAMOS 06/19/16 Lisinopril* (Zestril*) 2.5 Mg Tablet, 2.5 MG PO DAILY, #30 TAB Prov:ANAID RAMOS 06/19/16 Clopidogrel Bisulfate (Clopidogrel) 75 Mg Tablet, 75 MG PO DAILY for 30 Days, TAB Prov:REGIDOR,ANAID 06/19/16 Carvedilol* (Carvedilol*) 6.25 Mg Tablet, 6.25 MG PO BID for 30 Days, TAB Prov:ANAID RAMOS 06/19/16 Aspirin (Aspirin) 81 Mg Chew, 81 MG NGT DAILY for 30 Days, TAB Prov:ANAID RAMOS 06/19/16 Discontinued Reported Medications Atenolol* (Atenolol*) 25 Mg Tablet, 25 MG PO DAILY, #30 06/18/16 Follow-up Plan HOME CARE INSTRUCTIONS: Diet Instructions: Low Fat /CholesterolSpecial Diet: Carb count FOLLOW UP/APPOINTMENTS Appointments 1. Follow up with Dr. Luciano Love in 1-2 weeks OTHER ORDERS: Other Orders: 1. Call 911 if you have worsening chest pain Pending Labs Laboratory Tests Test 06/19/16 05:00 Anion Gap 15 (8-16) Basophils # 0.010^3/ul (0.0-0.1) Basophils % 0.3% (0.0-2.0) Blood Morphology Comment Blood Urea Nitrogen 18mg/dl (7-20) Calcium Level 8.3mg/dl (8.4-10.2) Carbon Dioxide Level 23mmol/L (21-31) Chloride Level 108mmol/L (97-110) Cholesterol Level 128mg/dl (100-200) Cholesterol/HDL Ratio 8.0RATIO Creatinine 1.19mg/dl (0.61-1.24) Eosinophils # 0.110^3/ul (0.0-0.5) Eosinophils % 1.7% (0.0-7.0) Glucose Level 84mg/dl (70-220) HDL Cholesterol 16mg/dl (30-78) Hematocrit 34.9% (42.0-52.0) Hemoglobin 11.7g/dl (14.0-18.0) Hemoglobin A1c 5.5% (0-5.9) LDL Cholesterol, Calculated 91mg/dl Lymphocytes # 1.910^3/ul (0.8-2.9) Lymphocytes % 26.2% (15.0-51.0) Magnesium Level 2.1mg/dl (1.7-2.5) Mean Corpuscular Hemoglobin 26.7pg (29.0-33.0) Mean Corpuscular Hemoglobin Concent 33.4g/dl (32.0-37.0) Mean Corpuscular Volume 79.9fl (82.0-101.0) Mean Platelet Volume 7.9fl (7.4-10.4) Monocytes # 0.710^3/ul (0.3-0.9) Monocytes % 8.8% (0.0-11.0) Neutrophils # 4.710^3/ul (1.6-7.5) Neutrophils % 63.0% (39.0-77.0) Nucleated Red Blood Cells # 0.010^3/ul (0.0-0.0) Nucleated Red Blood Cells % 0.0/100WBC (0.0-0.0) Phosphorus Level 3.1mg/dl (2.5-4.9) Platelet Count 93657^3/UL (140-440) Potassium Level 4.2mmol/L (3.5-5.1) Red Blood Count 4.3710^6/ul (4.70-6.10) Red Cell Distribution Width 16.5% (11.5-14.5) Sodium Level 142mmol/L (135-144) Triglycerides Level 107mg/dl (0-149) White Blood Count 7.410^3/ul (4.8-10.8) ANAID RAMOS Jun 19, 2016 15:21
[2016-06-21] MEDS ORDERED: INFLUENZA VIRUS VACCINE 0.5 ML SYG IM* ONE (09:00)
== END 2016-06-19 14:26 | disposition home or self-care (01) | DRG 247 ==
LOC: E/R 22:27 → MS4 06-18 08:52 → ICU 06-18 13:35
PROVIDERS: ADMIT Internal Medicine; ATTEND Internal Medicine
PROC: B2011ZZ Plain Radiography of Multiple Coronary Arteries using Low Osmolar Contrast (ICD-10-PCS; 2016-06-18)
PROC: 027034Z Dilation of Coronary Artery, One Artery with Drug-eluting Intraluminal Device, Percutaneous Approach (ICD-10-PCS; principal; 2016-06-18 10:00)
PROC: 4A023N7 Measurement of Cardiac Sampling and Pressure, Left Heart, Percutaneous Approach (ICD-10-PCS; 2016-06-18 10:00)
DX: I21.4 Non-ST elevation (NSTEMI) myocardial infarction (principal); N17.9 Acute kidney failure, unspecified; I12.9 Hypertensive chronic kidney disease with stage 1 through stage 4 chronic kidney disease, or unspecified chronic kidney disease; N18.9 Chronic kidney disease, unspecified; I44.7 Left bundle-branch block, unspecified; M06.9 Rheumatoid arthritis, unspecified; D64.9 Anemia, unspecified; R11.2 Nausea with vomiting, unspecified
CPT/HCPCS: 71010; 80048; 80061; 82550; 82553; 83036; 83735; 84100; 84484; 85025; 85610; 85730; 93005; 93306; 93454; C1725; C1769; C1874; C1887; C9600; J1644; J2250; J3010; J3480; J7030; Q9967